=== PATIENT | male | born 1960 | race Caucasian/White ===

== ENCOUNTER 2017-01-26 13:04 | Inpatient (IN) | payer OTHER ==
[2017-01-26 14:18] VITALS: BMI 31.4
--- NOTE | 2017-01-26 14:24 | HP ---
COWS - Scale Resting Pulse: 2= MS 101-120 Sweatin= Chills/Flushing Restless Observation: 1= Difficult to Sit Still Pupil Size: 0= Normal to Room Light Bone or Joint Aches: 1= Mild Discomfort Runny Nose/ Eye Tearin= Nasal Congestion GI Upset > 30mins: 1= Stomach Cramp Tremor Observation: 1= Tremor [place], Not Seen Yawning Observation: 1= 1-2x During Session Anxiety or Irritability: 1=Feels Anxious/Irritable Goose Flesh Skin: 0=Smooth Skin COWS Score: 10 Admission ROS [facility] - HPI Chief Complaint: I want to stop, I was doing ok, then I started up again. Allergies/Adverse Reactions: Allergies Allergy/AdvReac Type Severity Reaction Status Date / Time No Known Allergies Allergy Verified 01/26/17 14:19 History of Present Illness: 56 yo gentleman here for detox from heroin - states was in detox [address] [facility] - did well until 2014 when he picked up again. No seizures. Exam Limitations: Clinical Condition - Ebola screening Have you traveled outside of the country in the last 21 days: No Have you had contact with anyone from an Ebola affected area: No Have you been sick,other than usual withdrawal symptoms: No Do you have a fever: No - Review of Systems Constitutional: Malaise, Changes in sleep EENT: reports: Nose Congestion Respiratory: reports: No Symptoms reported Cardiac: reports: No Symptoms Reported GI: reports: Poor Appetite, Indigestion : reports: Dysuria Musculoskeletal: reports: Back Pain, Muscle Pain Integumentary: reports: No Symptoms Reported Neuro: reports: Headache Endocrine: reports: No Symptoms Reported Hematology: reports: No Symptoms Reported Psychiatric: reports: Judgement Intact, Mood/Affect Appropiate, Orientated x3 Other Systems: Reviewed and Negative Patient History - Patient Medical History Hx Anemia: No Hx Asthma: No Hx Chronic Obstructive Pulmonary Disease (COPD): No Hx Cancer: No Hx Cardiac Disorders: No Hx Congestive Heart Failure: No Hx Hypertension: No Hx Hypercholesterolemia: No Hx Pacemaker: No HX Cerebrovascular Accident: No Hx Seizures: No Hx Dementia: No Hx Diabetes: No Hx Gastrointestinal Disorders: No Hx Liver Disease: No Hx Genitourinary Disorders: No Hx Sexually Transmitted Disorders: No Hx Renal Disease (ESRD): No Hx Thyroid Disease: No Hx Human Immunodeficiency Virus (HIV): No Hx Hepatitis C: No Hx Depression: No Hx Suicide Attempt: No Hx Bipolar Disorder: No Hx Schizophrenia: No - Patient Surgical History Past Surgical History: Yes Hx Orthopedic Surgery: Yes (right foot surgery 2014; two arthroscopic knee surgeries 1979, 1989) - PPD History Previous Implant?: Yes Documented Results: Negative w/o proof PPD to be Administered?: Yes - Reproductive History Patient is a Female of Child Bearing Age (11 -55 yrs old): No (male) - Smoking Cessation Smoking history: Former smoker Have you smoked in the past 12 months: No Initiated information on smoking cessation: No - Substance & Tx. History Hx Alcohol Use: Yes Hx Substance Use: Yes Substance Use Type: Alcohol - Substances Abused Heroin Route: Inhalation Frequency: Daily Amount used: 3 bags Age of first use: 44 Date of Last Use: 01/26/17 Alcohol Route: Oral Frequency: 1-2 times per week Amount used: sixteen oz beer and a nip Age of first use: 15 Date of Last Use: 01/26/17 Cocaine Route: Inhalation Frequency: 1-3 times last 30 days Amount used: $50 Age of first use: 56 Date of Last Use: 01/26/17 Alprazolam (Xanax) Route: Oral Frequency: 1-2 times per week Amount used: sixteen oz beer and a nip Age of first use: 15 Date of Last Use: 01/26/17 Family Disease History - Family Disease History Family Disease History: Heart Disease: Father (, etoh, cirrhosis), CA: Mother (, ), Brother ( liver cancer, etoh, hiv), Other: Father, Mother, Brother, Sister (hiv, drugs, ) Admission Physical Exam [facility] - Vital Signs Vital Signs: Vital Signs - 24 hr 01/26/17 14:15 Temperature 95.5 F L Pulse Rate 123 H Respiratory 20 Rate Blood Pressure 129/86 - Physical General Appearance: Yes: Nourished, Appropriately Dressed, Mild Distress, Obese , Anxious HEENTM: Yes: Hearing grossly Normal, Normal ENT Inspection, Normocephalic, Normal Voice, Pharynx Normal, Nasal Congestion Respiratory: Yes: Normal Breath Sounds, No Respiratory Distress Neck: Yes: No masses,lesions,Nodules, Supple Breast: Yes: Breast Exam Deferred Cardiology: Yes: Regular Rhythm, Regular Rate, Tachycardia Abdominal: Yes: Soft, Protuberent Genitourinary: Yes: Dysuria Back: Yes: Normal Inspection Musculoskeletal: Yes: full range of Motion, Gait Steady, Muscle Pain Extremities: Yes: Normal Inspection, Non-Tender Neurological: Yes: Fully Oriented, Alert, Motor Strength 5/5, Normal Mood/Affect , Normal Response Integumentary: Yes: Normal Color, Dry, Warm Lymphatic: Yes: Within Normal Limits - Diagnostic (1) Uncomplicated opioid dependence Current Visit: Yes Status: Chronic Cleared for Admission [facility] - Detox or Rehab [facility] Level of Care: Medically Managed Detox Regimen/Protocol: Methadone [facility] Breath Alcohol Content Breath Alcohol Content: 0.027 Urine Drug Screen - Results Drug Screen Negative: No Urine Drug Screen Results: CINDY-Cocaine, OPI-Opiates, BZO-Benzodiazepines, OXY- Oxycodone
[2017-01-26] MEDS ORDERED: P-EPHED 60MG/TRIPROLIDI 2.5MG TABLET PO PRN (14:32)
[2017-01-26] MEDS ORDERED: MENTHOL/PHENOL 1 EACH UD MM PRN (14:32)
[2017-01-26] MEDS ORDERED: ACETAMINOPHEN 325 MG TABLET (FP) PO PRN (14:32)
[2017-01-26] MEDS ORDERED: MAG HYDROX/AL HYDROX/SIMETH 30 ML UNIT-DOSE CUP PO PRN (14:32)
[2017-01-26] MEDS ORDERED: METHADONE HCL 10 MG TABLET (FOR DETOX USE ONLY) PO ONE ×2 (14:32→23:00)
[2017-01-26] MEDS ORDERED: guaiFENesin/D-METHORPHAN HB 10 ML UNIT-DOSE CUPS PO PRN (14:32)
[2017-01-26] MEDS ORDERED: IBUPROFEN 400 MG TABLET (FP) PO PRN (14:32)
[2017-01-26] MEDS ORDERED: MAGNESIUM HYDROX 2400MG/30ML ORAL SUSPENSION 30 ML CUP PO PRN (14:32)
[2017-01-26] MEDS ORDERED: LOPERAMIDE HCL 2 MG CAPSULE PO PRN (14:32)
[2017-01-26] MEDS ORDERED: MAGNESIUM CITRATE 300 ML BOTTLE PO PRN (14:32)
[2017-01-26] MEDS ORDERED: METHADONE HCL 10 MG TABLET (FOR DETOX USE ONLY) ONE (17:02)
[2017-01-26] MEDS: diazePAM 5 MG TABLET PO PRN ×2 (17:12→23:03)
--- NOTE | 2017-01-26 19:21 | PN ---
[facility] Progress Note Note: EKG SHOWED NEW ONSET OF ATRIAL FIBRILLATION WITH RAPID VENTRICULAR RESPONSE PREVIOUS ALSO SHOWED VPC STATED BY PATIENT THAT HE WAS SEEN BY HIS PMD AND HAD EKG DONE WHICH WAS TOLD IT WAS NORMAL TREATMENT TO ER FOR EVALUATION,SPOKE WITH DR NOEL AT [facility] ER TO BE TRANSPORTED BY [facility] ,ACLS
--- NOTE | 2017-01-26 22:21 | PN ---
[facility] Progress Note Note: PATIENT TO BE TRANSFERRED BACK TO [facility] AFTER BEING EVALUATED AT [facility]. LEGISLATORS SPOKE TO DR. WORKMAN AND HE STATED THE PATIENT IS TO BE STARTED ON CARDIZEM 30MG PO BID AND ASA 81 PO QD; NEW MEDICATIONS HAVE BEEN ORDERED.
[2017-01-26] MEDS: THIAMINE HCL 100 MG TABLET (FP) PO SCH (23:03)
[2017-01-26] MEDS: diphenhydrAMINE HCL 50 MG CAPSULE PO PRN (23:04)
[2017-01-27] MEDS: diazePAM 5 MG TABLET PO PRN ×4 (05:29→22:07)
[2017-01-27 09:59] LABS: MCH 32.4 pg (25.7-33.7); MCHC 32.9 g/dl (32.0-35.9); MEAN CELL VOLUME 98.4 fl (80-96); MEAN PLT VOLUME 9.3 fl (7.5-11.1); PLATELET COUNT 145 K/MM3 (134-434); WHITE BLOOD COUNT 5.1 K/mm3 (4.0-10.0)
[2017-01-27] MEDS ORDERED: METHADONE HCL 10 MG TABLET (FOR DETOX USE ONLY) PO ONE (10:00)
[2017-01-27 10:20] LABS: ALBUMIN 2.9 g/dl (3.4-5.0); ANION GAP 7 (8-16); BILIRUBIN,TOTAL 1.3 mg/dL (0.2-1.0); CALCIUM 8.6 mg/dL (8.5-10.1); CO2 26 mmol/L (21-32); CREATININE 0.7 mg/dL (0.7-1.3); GLUCOSE,RANDOM 93 mg/dL (74-106); SGOT/AST 26 U/L (15-37); SGPT/ALT 32 U/L (12-78); TOT PROT 6.3 g/dl (6.4-8.2)
[2017-01-27 10:23] LABS: ALK PHOS 97 U/L (45-117)
[2017-01-27] MEDS: dilTIAZem HCL 30 MG TABLET (FP) PO SCH ×2 (10:44→22:05)
[2017-01-27] MEDS: ASPIRIN 81 MG CHEWABLE TABLETS PO SCH (11:01)
[2017-01-27] MEDS: PRENATAL VITAMINS W/ FOLIC ACID TABLET (FP) PO SCH (11:01)
--- NOTE | 2017-01-27 11:37 | EKG ---
Test Reason : Blood Pressure : / mmHG Vent. Rate : 121 BPM Atrial Rate : 156 BPM P-R Int : 000 ms QRS Dur : 084 ms QT Int : 322 ms P-R-T Axes : 000 067 068 degrees QTc Int : 457 ms ATRIAL FIBRILLATION WITH RAPID VENTRICULAR RESPONSE WITH PREMATURE VENTRICULAR OR ABERRANTLY CONDUCTED COMPLEXES ABNORMAL ECG NO PREVIOUS ECGS AVAILABLE Confirmed by SAUL REYES MD ([id number]) on 01/27/2017 11:36:59 AM Referred By: Confirmed By:SAUL REYES MD
--- NOTE | 2017-01-27 12:55 | PN ---
S Progress Note (SOAP) Subjective: Tremor, sweating, nausea, anxious, interrupted sleep Objective: 01/27/17 12:53 Last Vital Signs Temp Pulse Resp BP Pulse Ox 97.0 F L 76 18 122/80 01/27/17 12:10 01/27/17 12:10 01/27/17 12:10 01/27/17 12:10 Laboratory Tests 01/27/17 01/27/17 01/27/17 07:16 07:16 07:16 WBC 5.1 RBC 4.38 Hgb 14.2 Hct 43.1 MCV 98.4 H MCHC 32.9 RDW 14.0 Plt Count 145 MPV 9.3 Sodium 138 Potassium 4.1 Chloride 105 Carbon Dioxide 26 Anion Gap 7 L BUN 9 Creatinine 0.7 Creat Clearance w eGFR > 60 Random Glucose 93 Calcium 8.6 Total Bilirubin 1.3 H AST 26 D ALT 32 D Alkaline Phosphatase 97 Total Protein 6.3 L Albumin 2.9 L RPR Titer Nonreactive Labs noted Assessment: 01/27/17 12:54 Withdrawal symptoms Plan: Continue detox
--- NOTE | 2017-01-27 13:03 | PN ---
BHS COWS - Scale Resting Pulse: 0= [place] 80 or Below Sweatin= Chills/Flushing Restless Observation: 3= Extraneous Movement Pupil Size: 0= Normal to Room Light Bone or Joint Aches: 2= Severe Diffuse Aches Runny Nose/ Eye Tearin= Runny Nose/Eyes GI Upset > 30mins: 1= Stomach Cramp Tremor Observation of Outstretched Hands: 2= Slight Tremor Visible Yawning Observation: 0= None Anxiety or Irritability: 2=Irritable/Anxious Goose Flesh Skin: 0=Smooth Skin COWS Score: 13
[2017-01-27] MEDS: THIAMINE HCL 100 MG TABLET (FP) PO SCH (22:05)
[2017-01-27] MEDS: diphenhydrAMINE HCL 50 MG CAPSULE PO PRN (22:08)
[2017-01-28] MEDS: diazePAM 5 MG TABLET PO PRN ×5 (05:24→23:25)
[2017-01-28] MEDS ORDERED: METHADONE HCL 5 MG TABLET (FOR DETOX USE ONLY) PO ONE (10:00)
[2017-01-28] MEDS: ASPIRIN 81 MG CHEWABLE TABLETS PO SCH (10:42)
[2017-01-28] MEDS: PRENATAL VITAMINS W/ FOLIC ACID TABLET (FP) PO SCH (10:42)
[2017-01-28] MEDS: dilTIAZem HCL 30 MG TABLET (FP) PO SCH ×2 (10:42→22:54)
[2017-01-28 15:40] LABS: URINE APPEARANCE SLCLOUDY; URINE BILIRUBIN NEGATIVE (NEGATIVE); URINE COLOR DKYELLOW; URINE GLUCOSE (UA) NEGATIVE (NEGATIVE); URINE KETONE NEGATIVE (NEGATIVE); URINE NITRITE NEGATIVE (NEGATIVE); URINE PROTEIN NEGATIVE (NEGATIVE); URINE UROBILINOGEN 4.0 E.U/dl E.U./dl (0.2-1.0)
[2017-01-28 15:42] LABS: URINE BLOOD 1+ (NEGATIVE); URINE LEUK ESTERASE 3+ (NEGATIVE)
[2017-01-28 15:51] LABS: URINE MUCUS RARE; URINE RBC 11 /hpf (0-3); URINE WBC 75 /hpf (3-5)
[2017-01-28] MEDS: diphenhydrAMINE HCL 50 MG CAPSULE PO PRN (22:54)
[2017-01-28] MEDS: THIAMINE HCL 100 MG TABLET (FP) PO SCH (22:54)
[2017-01-29] MEDS: diazePAM 5 MG TABLET PO PRN ×3 (05:38→14:33)
[2017-01-29] MEDS ORDERED: METHADONE HCL 5 MG TABLET (FOR DETOX USE ONLY) PO ONE (10:00)
[2017-01-29] MEDS: dilTIAZem HCL 30 MG TABLET (FP) PO SCH ×2 (10:30→23:02)
[2017-01-29] MEDS: ASPIRIN 81 MG CHEWABLE TABLETS PO SCH (10:30)
[2017-01-29] MEDS: PRENATAL VITAMINS W/ FOLIC ACID TABLET (FP) PO SCH (10:30)
--- NOTE | 2017-01-29 11:43 | PN ---
BHS Progress Note (SOAP) Subjective: ANXIETY,SWEATS,CHILLS,INTERMITTENT SLEEP. Objective: 01/29/17 11:41 Vital Signs Temperature 95.8 F L 01/29/17 10:15 Pulse Rate 94 H 01/29/17 10:15 Respiratory Rate 18 01/29/17 10:15 Blood Pressure 110/69 01/29/17 10:15 O2 Sat by Pulse Oximetry (%) Laboratory Last Values WBC 5.1 K/mm3 (4.0-10.0) 01/27/17 07:16 RBC 4.38 M/mm3 (4.00-5.60) 01/27/17 07:16 Hgb 14.2 GM/dL (11.7-16.9) 01/27/17 07:16 Hct 43.1 % (35.4-49) 01/27/17 07:16 MCV 98.4 fl (80-96) H 01/27/17 07:16 MCHC 32.9 g/dl (32.0-35.9) 01/27/17 07:16 RDW 14.0 % (11.9-15.9) 01/27/17 07:16 Plt Count 145 K/MM3 (134-434) 01/27/17 07:16 MPV 9.3 fl (7.5-11.1) 01/27/17 07:16 Sodium 138 mmol/L (136-145) 01/27/17 07:16 Potassium 4.1 mmol/L (3.5-5.1) 01/27/17 07:16 Chloride 105 mmol/L (98-107) 01/27/17 07:16 Carbon Dioxide 26 mmol/L (21-32) 01/27/17 07:16 Anion Gap 7 (8-16) L 01/27/17 07:16 BUN 9 mg/dL (7-18) 01/27/17 07:16 Creatinine 0.7 mg/dL (0.7-1.3) 01/27/17 07:16 Creat Clearance w eGFR > 60 (>60) 01/27/17 07:16 Random Glucose 93 mg/dL (74-106) 01/27/17 07:16 Calcium 8.6 mg/dL (8.5-10.1) 01/27/17 07:16 Total Bilirubin 1.3 mg/dL (0.2-1.0) H 01/27/17 07:16 AST 26 U/L (15-37) D 01/27/17 07:16 ALT 32 U/L (12-78) D 01/27/17 07:16 Alkaline Phosphatase 97 U/L (45-117) 01/27/17 07:16 Total Protein 6.3 g/dl (6.4-8.2) L 01/27/17 07:16 Albumin 2.9 g/dl (3.4-5.0) L 01/27/17 07:16 Urine Color Dkyellow 01/28/17 12:00 Urine Appearance Slcloudy 01/28/17 12:00 Urine pH 6.0 (5.0-8.0) 01/28/17 12:00 Ur Specific [place] 1.013 (1.001-1.035) 01/28/17 12:00 Urine Protein Negative (NEGATIVE) 01/28/17 12:00 Urine Glucose (UA) Negative (NEGATIVE) 01/28/17 12:00 Urine Ketones Negative (NEGATIVE) 01/28/17 12:00 Urine Blood 1+ (NEGATIVE) H 01/28/17 12:00 Urine Nitrite Negative (NEGATIVE) 01/28/17 12:00 Urine Bilirubin Negative (NEGATIVE) 01/28/17 12:00 Urine Urobilinogen 4.0 e.u/dl E.U./dl (0.2-1.0) 01/28/17 12:00 Ur Leukocyte Esterase 3+ (NEGATIVE) H 01/28/17 12:00 Urine RBC 11 /hpf (0-3) 01/28/17 12:00 Urine WBC 75 /hpf (3-5) 01/28/17 12:00 Ur Epithelial Cells Rare /hpf (FEW) 01/28/17 12:00 Urine Mucus Rare 01/28/17 12:00 RPR Titer Nonreactive (NONREACTIVE) 01/27/17 07:16 LABS NOTED Assessment: 01/29/17 11:41 WITHDRAWAL SX R/O UTI Plan: CONTINUE DETOX REPEAT UA; UC TODAY INCREASE PO FLUIDS
--- NOTE | 2017-01-29 11:52 | PN ---
BHS COWS - Scale Resting Pulse: 1= [place] 81-100 Sweatin= Chills/Flushing Restless Observation: 3= Extraneous Movement Pupil Size: 2= Moderately Dilated Bone or Joint Aches: 4=Acute Joint/Muscle Pain Runny Nose/ Eye Tearin= Nasal Congestion GI Upset > 30mins: 1= Stomach Cramp Tremor Observation of Outstretched Hands: 1= Tremor [place], Not Seen Yawning Observation: 1= 1-2x During Session Anxiety or Irritability: 2=Irritable/Anxious Goose Flesh Skin: 0=Smooth Skin COWS Score: 17
--- NOTE | 2017-01-29 16:58 | EKG ---
Test Reason : Blood Pressure : / mmHG Vent. Rate : 131 BPM Atrial Rate : 133 BPM P-R Int : 000 ms QRS Dur : 086 ms QT Int : 328 ms P-R-T Axes : 000 069 078 degrees QTc Int : 484 ms ATRIAL FIBRILLATION WITH RAPID VENTRICULAR RESPONSE ABNORMAL ECG WHEN COMPARED WITH ECG OF 26-JAN-2017 16:05, VENTRICUALR ECTOPIES ARE NO LONGER SEEN Confirmed by DAVID OWENS, TONI ([id number]) on 01/29/2017 4:58:39 PM Referred By: Confirmed By:TONI HERNANDEZ MD
[2017-01-29] MEDS: hydrOXYzine PAMOATE 50 MG CAPSULE (FP) PO PRN (18:58)
[2017-01-29 22:47] LABS: URINE APPEARANCE CLEAR; URINE BILIRUBIN NEGATIVE (NEGATIVE); URINE COLOR AMBER; URINE GLUCOSE (UA) NEGATIVE (NEGATIVE); URINE KETONE NEGATIVE (NEGATIVE); URINE NITRITE POSITIVE (NEGATIVE); URINE PROTEIN NEGATIVE (NEGATIVE); URINE UROBILINOGEN NEGATIVE E.U./dl (0.2-1.0)
[2017-01-29 22:56] LABS: URINE BLOOD 2+ (NEGATIVE); URINE LEUK ESTERASE 1+ (NEGATIVE)
[2017-01-29 22:58] LABS: URINE BACTERIA MANY /hpf (NONE SEEN); URINE MUCUS FEW; URINE RBC 1 /hpf (0-3); URINE WBC 16 /hpf (3-5)
[2017-01-29] MEDS: THIAMINE HCL 100 MG TABLET (FP) PO SCH (23:02)
[2017-01-29] MEDS: diphenhydrAMINE HCL 50 MG CAPSULE PO PRN (23:02)
[2017-01-30] MEDS: hydrOXYzine PAMOATE 50 MG CAPSULE (FP) PO PRN ×5 (05:27→23:11)
[2017-01-30] MEDS ORDERED: METHADONE HCL 10 MG TABLET (FOR DETOX USE ONLY) PO ONE (10:00)
[2017-01-30] MEDS: PRENATAL VITAMINS W/ FOLIC ACID TABLET (FP) PO SCH (10:50)
[2017-01-30] MEDS: ASPIRIN 81 MG CHEWABLE TABLETS PO SCH (10:50)
[2017-01-30] MEDS: dilTIAZem HCL 30 MG TABLET (FP) PO SCH ×2 (10:50→23:09)
--- NOTE | 2017-01-30 11:32 | PN ---
BHS Progress Note (SOAP) Subjective: ANXIETY,DECREASED SWEATS AND TREMORS. NAD. 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
[2017-01-30] MEDS: THIAMINE HCL 100 MG TABLET (FP) PO SCH (23:09)
[2017-01-31] MEDS: hydrOXYzine PAMOATE 50 MG CAPSULE (FP) PO PRN (05:30)
[2017-01-31] MEDS ORDERED: METHADONE HCL 5 MG TABLET (FOR DETOX USE ONLY) PO ONE (06:00)
[2017-01-31 06:34] VITALS: BP 125/76; PULSE 63; TEMP 96.7
--- NOTE | 2017-01-31 13:04 | DS ---
[facility] Detox Discharge Summary Admission Date: 01/26/17 Discharge Date: 01/31/17 - History Present History: Opioid Dependence Additional Comments: DETOX COMPLETED. 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 - Physical Exam Results Vital Signs: Vital Signs Temperature 96.7 F L 01/31/17 06:33 Pulse Rate 63 01/31/17 06:33 Respiratory Rate 18 01/31/17 06:33 Blood Pressure 125/76 01/31/17 06:33 O2 Sat by Pulse Oximetry (%) Pertinent Admission Physical Exam Findings: WITHDRAWAL SX - Treatment Hospital Course: Detox Protocol Followed, Detoxed Safely, Responded well, Discharged Condition Good, Rehab Referral Accepted Patient has Accepted a Rehab Referral to: ENCOURAGED TO ATTEND NA MEETINGS. - Medication Discharge Medications: Ambulatory Orders NK [No Known Home Medication] 01/26/17 - Diagnosis (1) Uncomplicated opioid dependence Status: Acute - AMA Did Patient Leave Against Medical Advice: No
== END 2017-01-31 07:12 | disposition home or self-care (01) | DRG 745 ==
LOC: YASAS 13:04 → Y3N 15:40
PROVIDERS: ADMIT Internal Medicine Addiction Medicine; ATTEND Internal Medicine Addiction Medicine
PROC: HZ2ZZZZ Detoxification Services for Substance Abuse Treatment (ICD-10-PCS; principal; 2017-01-26)
DX: F11.23 Opioid dependence with withdrawal (principal); I48.91 Unspecified atrial fibrillation; E66.9 Obesity, unspecified; Z68.31 Body mass index [BMI] 31.0-31.9, adult; R00.0 Tachycardia, unspecified; Z87.891 Personal history of nicotine dependence
CPT/HCPCS: 36415; 80053; 81003; 81015; 85027; 86593; 87086; 87186; 93005; 93010

== ENCOUNTER 2018-11-07 12:11 | Inpatient (IN) | payer OTHER ==
[2018-11-07 12:26] VITALS: BMI 32.5
--- NOTE | 2018-11-07 13:22 | HP ---
COWS - Scale Resting Pulse: 4= NC > 121 Sweatin= Chills/Flushing Restless Observation: 1= Difficult to Sit Still Pupil Size: 1= Pupils >than Normal Bone or Joint Aches: 1= Mild Discomfort Runny Nose/ Eye Tearin= Nasal Congestion GI Upset > 30mins: 1= Stomach Cramp Tremor Observation: 1= Tremor [place], Not Seen Yawning Observation: 0= None Anxiety or Irritability: 1=Feels Anxious/Irritable Goose Flesh Skin: 0=Smooth Skin COWS Score: 12 CIWA Score - Admission Criteria OASAS Guidelines: Admission for Medically Managed Detox: Requires at least one of the followin. CIWA greater than 12 2. Seizures within the past 24 hours 3. Delirium tremens within the past 24 hours 4. Hallucinations within the past 24 hours 5. Acute intervention needed for co occurring medical disorder 6. Acute intervention needed for co occurring psychiatric disorder 7. Severe withdrawal that cannot be handled at a lower level of care (continued vomiting, continued diarrhea, abnormal vital signs) requiring intravenous medication and/or fluids 8. Admission ROS [facility] Chief Complaint: I need to stop using heroin I need detox. Allergies/Adverse Reactions: Allergies Allergy/AdvReac Type Severity Reaction Status Date / Time No Known Allergies Allergy Verified 11/07/18 13:14 History of Present Illness: %7 y/o m pt with a 2 yr h/o heroin dep. seeking detox. Exam Limitations: No Limitations - Ebola screening Have you traveled outside of the country in the last 21 days: No Have you had contact with anyone from an Ebola affected area: No Have you been sick,other than usual withdrawal symptoms: No Do you have a fever: No - Review of Systems Constitutional: No Symptoms Reported EENT: reports: Nose Congestion, Dental Problems, Throat Pain Respiratory: reports: No Symptoms reported Cardiac: reports: Palpitations (a fib x) GI: reports: Nausea, Indigestion : reports: Frequency Musculoskeletal: reports: Joint Pain (knee pain on rt) Integumentary: reports: No Symptoms Reported, Sweating Neuro: reports: Numbness (rt fingers all) Endocrine: reports: Increased Urine Hematology: reports: Easy Bleeding (pt on xaralto), Easy Bruising Psychiatric: reports: No Sypmtoms Reported Other Systems: Reviewed and Negative Patient History - Patient Medical History Hx Anemia: No Hx Asthma: No Hx Chronic Obstructive Pulmonary Disease (COPD): No Hx Cancer: No Hx Cardiac Disorders: Yes (AFIB) Hx Congestive Heart Failure: No Hx Hypertension: No Hx Hypercholesterolemia: No Hx Pacemaker: No HX Cerebrovascular Accident: No Hx Seizures: No Hx Dementia: No Hx Diabetes: No Hx Gastrointestinal Disorders: No Hx Liver Disease: No Hx Genitourinary Disorders: No Hx Sexually Transmitted Disorders: No Hx Renal Disease (ESRD): No Hx Thyroid Disease: No Hx Human Immunodeficiency Virus (HIV): No Hx Hepatitis C: No Hx Depression: No Hx Suicide Attempt: No Hx Bipolar Disorder: No Hx Schizophrenia: No - Patient Surgical History Past Surgical History: Yes Hx Cardiac Surgery: Yes Hx Orthopedic Surgery: Yes (right foot surgery 2014; two arthroscopic knee surgeries 1979, 1989) Other Surgical History: C/SPINE SX 12/29 fusion at [facility] - PPD History Date: 01/28/17 PPD to be Administered?: Yes - Reproductive History Patient is a Female of Child Bearing Age (11 -55 yrs old): No - Smoking Cessation Smoking history: Never smoked Have you smoked in the past 12 months: No Hx Chewing Tobacco Use: No Initiated information on smoking cessation: Yes 'Breaking Loose' booklet given: 11/07/18 - Substance & Tx. History Hx Alcohol Use: Yes Hx Substance Use: Yes Substance Use Type: Heroin Hx Substance Use Treatment: Yes - Substances Abused Heroin Route: SNIFF Frequency: Daily Amount used: 5 BAGS Age of first use: 54 Date of Last Use: 11/07/18 Family Disease History - Family Disease History Family Disease History: Heart Disease: Father (, etoh, cirrhosis), CA: Mother (, ), Brother ( liver cancer, etoh, hiv), Other: Father, Mother, Brother, Sister (hiv, drugs, ) Admission Physical Exam [facility] - Vital Signs Vital Signs: Vital Signs - 24 hr 11/07/18 12:25 Temperature 98.1 F Pulse Rate 128 H Respiratory 20 Rate Blood Pressure 149/86 - Physical General Appearance: Yes: Appropriately Dressed, Obese, Sweating, Anxious HEENTM: Yes: EOMI, Hearing grossly Normal, Normal ENT Inspection, Nasal Congestion, Muffled/Hoarse Voice Respiratory: Yes: Chest Non-Tender, Lungs Clear, Normal Breath Sounds, No Respiratory Distress Neck: Yes: Within Normal Limits, Supple, Other (well healed scar left neck vertical) Breast: Yes: Breast Exam Deferred Cardiology: Yes: Irregularly Irregular (a fib) Abdominal: Yes: Non Tender, Soft, Increased Bowel Sounds, Protuberent Genitourinary: Yes: Frequency Back: Yes: Decreased Range of Motion Musculoskeletal: Yes: Joint Stiffness (knee) Extremities: Yes: Other (decreased rom) Neurological: Yes: corn miller II-XII NML intact, Fully Oriented, Alert, Motor Strength 5/5, Numbness (rt alll digitts distally) Integumentary: Yes: Moist Lymphatic: Yes: Within Normal Limits - Diagnostic (1) Atrial fibrillation with rapid ventricular response Current Visit: Yes Status: Chronic Comment: Pt ekg similar to previous studt in 01/25/17.except vr is now 104/m . Pt did not take any meds today.n Pt is asymptomatic, w/o CP,SOB, Juma repeat ekg in am . (2) Uncomplicated opioid dependence Current Visit: Yes Status: Chronic (3) Obesity Current Visit: Yes Status: Chronic Qualifiers: Obesity type: unspecified obesity type (4) Arthritis Current Visit: Yes Status: Chronic Cleared for Admission [facility] - Detox or Rehab [facility] Level of Care: Medically Managed Detox Regimen/Protocol: Methadone [facility] Breath Alcohol Content Breath Alcohol Content: 0 Urine Drug Screen - Results Drug Screen Negative: No Urine Drug Screen Results: OPI-Opiates, FEN-Fentanyl
[2018-11-07] MEDS ORDERED: IBUPROFEN 400 MG TABLET (FP) PO PRN (13:42)
[2018-11-07] MEDS ORDERED: LOPERAMIDE HCL 2 MG CAPSULE PO PRN (13:42)
[2018-11-07] MEDS ORDERED: MAGNESIUM HYDROX 2400MG/30ML ORAL SUSPENSION 30 ML CUP PO PRN (13:42)
[2018-11-07] MEDS ORDERED: ACETAMINOPHEN 325 MG TABLET (FP) PO PRN (13:42)
[2018-11-07] MEDS ORDERED: MAGNESIUM CITRATE 300 ML BOTTLE PO PRN (13:42)
[2018-11-07] MEDS ORDERED: hydrOXYzine PAMOATE 25 MG CAPSULE (FP) PO PRN (13:42)
[2018-11-07] MEDS ORDERED: MAG HYDROX/AL HYDROX/SIMETH 30 ML UNIT-DOSE CUP PO PRN (13:42)
[2018-11-07] MEDS ORDERED: METHADONE HCL 10 MG TABLET (FOR DETOX USE ONLY) PO ONE ×2 (14:30→23:00)
[2018-11-07] MEDS ORDERED: RIVAROXABAN 15 MG TABLET PO ONE (14:53)
[2018-11-07] MEDS ORDERED: SPIRONOLACTONE 25 MG TABLET (FP) PO ONE (15:00)
[2018-11-07] MEDS ORDERED: LISINOPRIL 5 MG TABLET (FP) PO ONE (15:00)
[2018-11-07] MEDS ORDERED: RIVAROXABAN 20 MG TABLET PO ONE (17:30)
[2018-11-07] MEDS: diazePAM 5 MG TABLET PO PRN ×2 (17:37→22:17)
--- NOTE | 2018-11-07 18:58 | EKG ---
Test Reason : Blood Pressure : / mmHG Vent. Rate : 104 BPM Atrial Rate : 340 BPM P-R Int : 000 ms QRS Dur : 082 ms QT Int : 304 ms P-R-T Axes : 000 059 070 degrees QTc Int : 399 ms ATRIAL FIBRILLATION WITH RAPID VENTRICULAR RESPONSE WITH PREMATURE VENTRICULAR OR ABERRANTLY CONDUCTED COMPLEXES ABNORMAL ECG WHEN COMPARED WITH ECG OF 26-JAN-2017 20:01, NO SIGNIFICANT CHANGE WAS FOUND Confirmed by CHRISTIN OWENS, ESTELA ([id number]) on 11/07/2018 6:57:55 PM Referred By: Confirmed By:ESTELA WALLER MD
[2018-11-07] MEDS ORDERED: MELATONIN 5 MG TABLETS PO PRN (22:00)
[2018-11-07] MEDS: THIAMINE HCL 100 MG TABLET (FP) PO SCH (22:16)
[2018-11-08] MEDS: diazePAM 5 MG TABLET PO PRN ×5 (02:40→22:27)
[2018-11-08] MEDS: MENTHOL/PHENOL 1 EACH UD MM PRN ×3 (06:08→22:29)
[2018-11-08] MEDS ORDERED: METHADONE HCL 10 MG TABLET (FOR DETOX USE ONLY) PO ONE (10:00)
[2018-11-08] MEDS: guaiFENesin/D-METHORPHAN HB 10 ML UNIT-DOSE CUPS PO PRN ×2 (10:37→22:28)
[2018-11-08] MEDS: SPIRONOLACTONE 25 MG TABLET (FP) PO SCH (10:37)
[2018-11-08] MEDS: PRENATAL VITAMINS W/ FOLIC ACID TABLET (FP) PO SCH (10:37)
[2018-11-08] MEDS: LISINOPRIL 5 MG TABLET (FP) PO SCH (10:37)
[2018-11-08] MEDS: P-EPHED 60MG/TRIPROLIDI 2.5MG TABLET PO PRN ×2 (10:38→22:29)
[2018-11-08 11:16] LABS: HEMATOCRIT 46.4 % (35.4-49); MCH 33.8 pg (25.7-33.7); MCHC 32.3 g/dl (32.0-35.9); MEAN CELL VOLUME 104.7 fl (80-96); MEAN PLT VOLUME 9.3 fl (7.5-11.1); PLATELET COUNT 169 K/MM3 (134-434); RBC 4.43 M/mm3 (4.00-5.60); RDW 14.7 % (11.9-15.9); WHITE BLOOD COUNT 3.1 K/mm3 (4.0-10.0)
[2018-11-08 11:56] LABS: ALBUMIN 3.6 g/dl (3.4-5.0); ALK PHOS 140 U/L (45-117); ANION GAP 6 MMOL/L (8-16); BILIRUBIN,TOTAL 0.8 mg/dL (0.2-1); BLOOD UREA NITROGEN 10 mg/dL (7-18); CHLORIDE 101 mmol/L (98-107); CO2 27 mmol/L (21-32); CREATININE 0.8 mg/dL (0.55-1.3); GLUCOSE,RANDOM 123 mg/dL (74-106); POTASSIUM 4.5 mmol/L (3.5-5.1); SGOT/AST 152 U/L (15-37); SGPT/ALT 89 U/L (13-61); SODIUM 134 mmol/L (136-145); TOT PROT 8.2 g/dl (6.4-8.2)
[2018-11-08] MEDS ORDERED: RIVAROXABAN PO SCH (17:30)
--- NOTE | 2018-11-08 17:42 | PN ---
BHS COWS - Scale Resting Pulse: 0= [place] 80 or Below Sweatin= Chills/Flushing Restless Observation: 1= Difficult to Sit Still Pupil Size: 0= Normal to Room Light Bone or Joint Aches: 2= Severe Diffuse Aches Runny Nose/ Eye Tearin= None GI Upset > 30mins: 1= Stomach Cramp Tremor Observation of Outstretched Hands: 2= Slight Tremor Visible Yawning Observation: 1= 1-2x During Session Anxiety or Irritability: 2=Irritable/Anxious Goose Flesh Skin: 0=Smooth Skin COWS Score: 10 BHS Progress Note (SOAP) Subjective: Interrupted Sleep, Body Aches, Stomach Cramping, Sweating, Tremors. Objective: PATIENT A & O X 3. IN NO ACUTE DISTRESS. 11/08/18 17:40 Vital Signs Temperature 97.0 F L 11/08/18 15:11 Pulse Rate 54 L 11/08/18 15:11 Respiratory Rate 20 11/08/18 15:11 Blood Pressure 128/78 11/08/18 15:11 O2 Sat by Pulse Oximetry (%) Laboratory Tests 11/08/18 11/08/18 11/08/18 05:45 05:45 05:45 WBC 3.1 L RBC 4.43 Hgb 15.0 Hct 46.4 MCV 104.7 H MCH 33.8 H MCHC 32.3 RDW 14.7 Plt Count 169 MPV 9.3 Sodium 134 L Potassium 4.5 Chloride 101 Carbon Dioxide 27 Anion Gap 6 L BUN 10 Creatinine 0.8 Creat Clearance w eGFR > 60 Random Glucose 123 H Calcium 9.0 Total Bilirubin 0.8 AST 152 H ALT 89 H Alkaline Phosphatase 140 H Total Protein 8.2 Albumin 3.6 RPR Titer Nonreactive LABS NOTED. Assessment: 11/08/18 17:41 WITHDRAWAL SYMPTOMS. LEUKOPENIA. 11/08/18 17:43 Plan: CONTINUE DETOX. REPEAT AST ON 11/10/2018 FOR ELEVATED ADMISSION LEVEL. INCREASE DAILY PO FLUID INTAKE.
[2018-11-08] MEDS: THIAMINE HCL 100 MG TABLET (FP) PO SCH (23:36)
[2018-11-09] MEDS: diazePAM 5 MG TABLET PO PRN ×2 (02:59→09:24)
[2018-11-09] MEDS ORDERED: METHADONE HCL 5 MG TABLET (FOR DETOX USE ONLY) PO ONE (10:00)
[2018-11-09] MEDS: SPIRONOLACTONE 25 MG TABLET (FP) PO SCH (10:39)
[2018-11-09] MEDS: PRENATAL VITAMINS W/ FOLIC ACID TABLET (FP) PO SCH (10:39)
[2018-11-09] MEDS: LISINOPRIL 5 MG TABLET (FP) PO SCH (10:39)
[2018-11-09 13:20] VITALS: BP 116/80; PULSE 62; TEMP 98.2
--- NOTE | 2018-11-09 17:20 | DS ---
[facility] Detox Discharge Summary Admission Date: 11/07/18 Discharge Date: 11/09/18 - History Present History: Opioid Dependence Additional Comments: Patient demanded to leave AMA despite encouragement from staff to complete detox. Patient is A, A, Ox3, in nad, ambulatory. Patient instructed to call 911 if feeling sick or withdrawal symptoms and to see his PCP within 3 days. Pertinent Past History: A fb Opioid dependence Obesity Arthritis - Physical Exam Results Vital Signs: Vital Signs Temperature 98.2 F 11/09/18 13:19 Pulse Rate 62 11/09/18 13:19 Respiratory Rate 18 11/09/18 13:19 Blood Pressure 116/80 11/09/18 13:19 O2 Sat by Pulse Oximetry (%) Pertinent Admission Physical Exam Findings: Withdrawal symptoms Laboratory Tests 11/08/18 11/08/18 11/08/18 05:45 05:45 05:45 WBC 3.1 L RBC 4.43 Hgb 15.0 Hct 46.4 MCV 104.7 H MCH 33.8 H MCHC 32.3 RDW 14.7 Plt Count 169 MPV 9.3 Sodium 134 L Potassium 4.5 Chloride 101 Carbon Dioxide 27 Anion Gap 6 L BUN 10 Creatinine 0.8 Creat Clearance w eGFR > 60 Random Glucose 123 H Calcium 9.0 Total Bilirubin 0.8 AST 152 H ALT 89 H Alkaline Phosphatase 140 H Total Protein 8.2 Albumin 3.6 RPR Titer Nonreactive Labs reviewed: hyperglycemia noted. Patient to see his PCP within 3 days - Medication Discharge Medications: Ambulatory Orders Lisinopril 5 mg PO DAILY 11/07/18 Metoprolol Succinate [Toprol Xl] 200 mg PO DAILY 11/07/18 Rivaroxaban [Xarelto -] 20 mg PO DAILY 11/07/18 Spironolactone [Aldactone] 25 mg PO DAILY 11/07/18 - Diagnosis (1) Opioid dependence with withdrawal Status: Acute (2) Arthritis Status: Chronic (3) Atrial fibrillation with rapid ventricular response Status: Chronic (4) Obesity Status: Chronic Qualifiers: Obesity type: unspecified obesity type Obesity classification: adult class 1 (BMI 30 - 34.9) Serious obesity comorbidity presence: unspecified whether serious comorbidity present Body mass index: BMI 32.0-32.9 Qualified Code(s) : E66.9 - Obesity, unspecified; Z68.32 - Body mass index (BMI) 32.0-32.9, adult (5) Hyperglycemia Status: Acute - AMA Did Patient Leave Against Medical Advice: Yes (Instructed to call 911 stat if feeling sick or withdrawal symptoms)
[2018-11-10] MEDS ORDERED: METHADONE HCL 5 MG TABLET (FOR DETOX USE ONLY) PO ONE (10:00)
[2018-11-11] MEDS ORDERED: METHADONE HCL 10 MG TABLET (FOR DETOX USE ONLY) PO ONE (10:00)
[2018-11-12] MEDS ORDERED: METHADONE HCL 5 MG TABLET (FOR DETOX USE ONLY) PO ONE (06:00)
== END 2018-11-09 14:13 | disposition left against medical advice (07) | DRG 894 ==
LOC: YASAS 12:11 → Y3N 13:26
PROC: HZ2ZZZZ Detoxification Services for Substance Abuse Treatment (ICD-10-PCS; principal; 2018-11-07)
DX: F11.23 Opioid dependence with withdrawal (principal); I48.91 Unspecified atrial fibrillation; Z79.01 Long term (current) use of anticoagulants; M12.9 Arthropathy, unspecified; E66.9 Obesity, unspecified; Z68.32 Body mass index [BMI] 32.0-32.9, adult
CPT/HCPCS: 36415; 80053; 85027; 86593; 93005; 93010